=== PATIENT | female | born 1995 | race Caucasian/White ===

== ENCOUNTER 2025-06-22 09:25 | Emergency (ER) | payer BC, SELFPAY ==
[2025-06-22 09:26] VITALS: BP 113/71
--- NOTE | 2025-06-22 09:53 | ED.GENMED ---
History of Present Illness
General
Chief Complaint: Back Pain
Time Seen by Provider: 06/22/25 09:27
History of Present Illness
History of Present Illness:
Presents to the emergency department for evaluation of low back pain rating down the left leg. Pain has been present for 3 days, she felt that she may have strained it while working, works as a nurse at hospital. She began taking 20 mg of
prednisone daily at the onset of symptoms as this had worked previously for her however earlier this morning symptoms woke her from sleep causing intense pain. She has radiation of pain/numbness into the left leg. Denies loss of bladder or bowel
function or saddle anesthesias. No falls or trauma.
Review of Systems
Review of Systems
Allergies reviewed?: Yes
All Other Systems: ROS reviewed and negative except as documented in HPI and ROS
Phy Exam
Physical Exam
Physical Exam:
GEN: Well appearing, NAD, WDWN
HEENT: Oral mucosa moist, no scleral icterus
Cardiac: Regular rate
Lung: No respiratory distress, no tachypnea
MSK: No gross deformity or injuries. No midline lumbar spine tenderness or paraspinous muscle tenderness. Positive straight leg raise at 30 degrees on the left. Bilateral lower extremity strength is 5 out of 5 in all deutsch however left leg
assessment is somewhat limited by pain.
Skin: Good color, no pallor or jaundice, no rashes
Neuro: AO x3, moves all extremities freely. Patellar reflexes 2+ bilaterally
Psych: Calm, cooperative
Course
Orders/Labs/Results
Orders:
Orders
06/22/25 09:42
Diazepam [Valium] 5 mg PO NOW STA
Ketorolac [Toradol] 30 mg IM NOW STA
06/22/25 09:57
Ketorolac [Toradol] 15 mg IV NOW STA
06/22/25 09:58
Ketorolac [Toradol] 15 mg .ROUTE .STK-MED ONE
06/22/25 11:13
HYDROmorphone [Dilaudid] 0.25 mg IV NOW STA
06/22/25 12:25
Oxycodone [Roxicodone] 5 mg PO NOW STA
Vital Signs
Initial and Last Documented VS:
Initial Vital Signs
Temp Pulse Resp BP Pulse Ox
98.4 F 75 18 113/71 100
06/22/25 09:26 06/22/25 09:26 06/22/25 09:26 06/22/25 09:26 06/22/25 09:26
Last Documented Vital Signs
Temp Pulse Resp BP Pulse Ox
98.4 F 77 18 112/67 97
06/22/25 09:26 06/22/25 11:30 06/22/25 11:30 06/22/25 11:30 06/22/25 11:30
MDM/Problems Addressed
MDM/Problems Addressed:
Patient has no symptoms of cauda equina, she was given numerous pain medications and was ultimately able to ambulate steadily in the emergency department. Will prescribe steroids plus NSAIDs and pain medication, recommend outpatient primary care
follow-up
*Pulse Oximetry
SaO2: 100
Oxygen Mode of Delivery: Room air
Patient hypoxic: no
*Critical Care Note
Total Time (30-74mins, 75-104mins- exclusive of procedures): Not Applicable
ED Attending Note
-
Portions of this chart may have been created with voice recognition software.� Occasional wrong word or��sound alike� substitutions may have occurred due to the inherent limitations of voice recognition software.
Discharge Plan
Departure
Patient Disposition: Home (Routine Discharge)
Date of Disposition: 06/22/25
Time of Disposition: 12:17
Patient with high blood pressure during this ER visit?: No
Discharge Problem:
Acute lumbar radiculopathy
Instructions: Radiculopathy (DC)
Prescriptions:
New
celecoxib [Celebrex] 200 mg capsule
200 mg PO BID Qty: 20 0RF
oxycodone-acetaminophen [Percocet] 5-325 mg tablet
1 tab PO Q6HPRN PRN (Reason: pain) Qty: 12 0RF
methocarbamol 750 mg tablet
750 - 1,500 mg PO Q8H Qty: 20 0RF
methylprednisolone [Medrol (Kayden)] 4 mg tablets,dose pack
See Rx Instructions .ROUTE .COMPLEX Qty: 21 0RF
Rx Instructions:
orally per package directions
No Action
prenat.vits,manish,xst-zdod-cwwvk Tablet
1 tab PO DAILY
gabapentin 300 mg Capsule
300 mg PO BID
cetirizine [Zyrtec] 10 mg Tablet
10 mg PO DAILY
ibuprofen 600 mg Tablet
600 mg PO Q4HPRN PRN (Reason: moderate pain/cramps) Qty: 30 0RF
Referrals:
UNKNOWN - PT DOES,NOT KNOW [Family Provider]
Interventions
Interventions:
*Risk Screen - Suicide Last Done: 06/22/25 09:26
*General Assessment Last Done: 06/22/25 09:26
*Neglect/Abuse Screening Last Done: 06/22/25 09:26
*ED COVID-19 Vaccine History Last Done: 06/22/25 09:26
*Nursing Disposition Last Done: 06/22/25 13:00
ED-Musculoskeletal Assessment Last Done: 06/22/25 11:08
Discharge Date and Time
Discharge Date/Time: 06/22/25 13:00
Print Language: MALAGASY
[2025-06-22] MEDS: VALIUM 5 MG PO (10:00)
[2025-06-22] MEDS: TORADOL 15 MG IV (10:00)
[2025-06-22] MEDS: DILAUDID 0.25 MG IV (11:15)
[2025-06-22 11:30] VITALS: BP 112/67
[2025-06-22] MEDS: ROXICODONE 5 MG PO (12:27)
== END 2025-06-22 13:00 | disposition home or self-care (01) ==
LOC: EMR 09:25
PROVIDERS: EMERGENCY PHYSICIAN Emergency Medicine
DX: M54.9 Dorsalgia, unspecified (principal)
CPT/HCPCS: 99282; 96374; 96375; 96372